=== PATIENT | female | born 1985 | race Caucasian/White ===

== ENCOUNTER → 2019-11-23 12:48 | Outpatient (CLI) | payer OTHER, SELFPAY ==
--- NOTE | 2019-11-23 13:11 | XR_ITS ---
PROCEDURE: XR KNEE RT 4V CLINICAL INDICATION: rt knee pain COMPARISON: No exams were available for comparison FINDINGS: No fracture or dislocation. No lytic or blastic change. There is normal mineralization. The joint spaces are well-preserved. No significant degenerative/arthritic changes. No erosive changes evident. Other findings:None. IMPRESSION: No acute findings. Dictated by: Lucius Tang MD 11/23/2019 13:58 Electronically signed by Lucius Tang MD in [place] 11/23/2019 13:58
== END ==
PROVIDERS: Visit Provider Orthopaedic Surgery
DX: M25.561 Pain in right knee (principal)
CPT/HCPCS: 73564